=== PATIENT | female | born 1990 | race Caucasian/White ===

== ENCOUNTER 2017-08-18 10:30 | Emergency (ER) | payer BC ==
--- NOTE | 2017-08-18 11:12 | EDM.PDOC ---
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 Status post multiple home tests who comes in with vaginal bleeding. States that she was doing well until today about 30 minutes ago she started to have heavy bleeding similar to her menstrual period. She did pass some blood clots. No abdominal pain. No abdominal cramping. No additional complaint. No recent illness. No recent trauma. She has not yet seen OB, she has an appointment with Dr. Paredes scheduled for September. This was a desired . Pelvic Pain Score (Numeric/FACES): 4 - Related Data Allergies Allergy/AdvReac Type Severity Reaction Status Date / Time No Known Allergies Allergy Verified 08/18/17 10:42 Home Meds: Home Meds . [No Known Home Meds] 08/18/17 [History] Past Medical History - Past Health History Medical/Surgical History: Denies Medical/Surgical History HEENT History: Reports: None Cardiovascular History: Reports: None Respiratory History: Reports: None Gastrointestinal History: Reports: None Genitourinary History: Reports: None Musculoskeletal History: Reports: None Neurological History: Reports: None Psychiatric History: Reports: None Endocrine/Metabolic History: Reports: None Oncologic (Cancer) History: Reports: None Dermatologic History: Reports: None - Past Surgical History HEENT Surgical History: Reports: None Female Surgical History: Reports: None Social & Family History - Tobacco Use Smoking Status *Q: Never Smoker - Recreational Drug Use Recreational Drug Use: No ED ROS GENERAL - Review of Systems Review Of Systems: See Below Constitutional: Reports: No Symptoms HEENT: Reports: No Symptoms Respiratory: Reports: No Symptoms Cardiovascular: Reports: No Symptoms GI/Abdominal: Denies: Abdominal Pain : Denies: Dysuria Musculoskeletal: Reports: No Symptoms Neurological: Reports: No Symptoms ED EXAM - Physical Exam Exam: See Below Exam Limited By: No Limitations General Appearance: Alert, WD/WN, No Apparent Distress Eye Exam: Bilateral Eye: Normal Inspection Ears: Normal External Exam Nose: Normal Inspection Throat/Mouth: Normal Inspection, Normal Voice, No Airway Compromise Head: Atraumatic, Normocephalic Neck: Normal Inspection, Supple, Non-Tender, Full Range of Motion Respiratory/Chest: No Respiratory Distress, Lungs Clear, Normal Breath Sounds, Chest Non-Tender Cardiovascular: Normal Peripheral Pulses, Regular Rate, Rhythm GI/Abdominal Exam: Soft, Non-Tender, No Distention. No: Rebound (Female) Exam: Normal External Exam, Vaginal Bleeding (mild, no clots. cervix closed.). No: Cervical Dilatation, Cervical Discharge, Products of Conception Back Exam: Normal Inspection Extremities: Normal Inspection Neurological: Alert, Oriented, Normal Cognition, No Motor/Sensory Deficits Psychiatric: Normal Affect, Normal Mood Skin Exam: Warm, Dry, Normal Color, No Rash Course - Vital Signs Last Recorded V/S: Last Vital Signs Temp 36.9 C 08/18/17 10:39 Pulse 108 H 08/18/17 10:39 Resp 18 08/18/17 10:39 BP 158/107 H 08/18/17 10:39 Pulse Ox 98 08/18/17 10:39 - Orders/Labs/Meds Orders: Active Orders 24 hr Category Date Time Status Pelvic Exam, Set Up [RC] ASDIRECTED Care 08/18/17 11:09 Active Transvaginal Non OB [US] Stat Exams 08/18/17 12:00 Stop Req Labs: Laboratory Tests 08/18/17 Range/Units 11:00 HCG, Quant 19371.0 mIU/mL - Re-Assessments/Exams Free Text/Narrative Re-Assessment/Exam: 08/18/17 11:37 EGA is 6wks 0 days by dates. No abd pain. Bleeding on my exam is mild, though patient states it was initially heavier. Discussed diagnosis of threatened at length. Given early EGA, discussed that ultrasound is unlikely to price changer at this time. She will Follow up with her OB this week in 2- 3 days for repeat HCG and possible ultrasound. Discussed strict return precautions for worsening bleeding or abdominal pain. Patient understood. 08/18/17 12:01 HCG 34,000, discussed with patient. Departure - Departure Time of Disposition: 11:42 Disposition: Home, Self-Care 01 Clinical Impression: Threatened - Discharge Information Referrals: PCP,None [Ordering Only Provider] - Forms: ED Department Discharge Additional Instructions: 1. Follow up with Dr. Paredes on Saturday or Saturday for further care. Your HCG ( hormone) level today was 34,100. 2. Return to the Emergency Department if you have very heavy bleeding ( bleeding through more than a pad per hour and passing large clots), if you have abdominal pain, or if you feel dizzy/like you may pass out. - My Orders Last 24 Hours: My Active Orders 08/18/17 11:09 Pelvic Exam, Set Up [RC] ASDIRECTED 08/18/17 12:00 Transvaginal Non OB [US] Stat - Assessment/Plan Last 24 Hours: My Active Orders 08/18/17 11:09 Pelvic Exam, Set Up [RC] ASDIRECTED 08/18/17 12:00 Transvaginal Non OB [US] Stat
== END 2017-08-18 12:09 | disposition home or self-care (01) ==
LOC: JD.ED 10:30
DX: O20.0 Threatened abortion (principal); Z3A.01 Less than 8 weeks gestation of pregnancy
CPT/HCPCS: 36415; 84702; 99282; 99284

== ENCOUNTER 2018-03-17 20:51 | Inpatient (IN) | payer BC ==
[2018-03-17] MEDS ORDERED: Metoprolol Tartrate 100 MG Tab PO SCH (23:15)
[2018-03-18] MEDS ORDERED: Labetalol 100 MG Tab PO ONE (06:11)
[2018-03-18] MEDS ORDERED: ceFAZolin 2 GM in Premix Bag 1 BAG IV ONE (07:27)
[2018-03-18] MEDS ORDERED: Citric Acid/Sodium Citrate Solution 30 ML Cup PO ONE (07:27)
[2018-03-18] MEDS ORDERED: Sodium Chloride 0.9% 10 ML Syringe FLUSH PRN (07:27)
[2018-03-18] MEDS ORDERED: Metoclopramide 10 MG/2 ML SDV IVPUSH ONE (07:27)
[2018-03-18] MEDS ORDERED: Lactated Ringers 1,000 ML IV SCH (07:30)
[2018-03-18] MEDS ORDERED: Bupivacaine 0.5% 30 ML SDV ONE (07:39)
--- NOTE | 2018-03-18 07:40 | PCM.LDHP ---
L&D History of Present Illness - General Date of Service: 03/18/18 Admit Problem/Dx: Patient Status Order with Admit Dx/Problem 03/17/18 21:55 Patient Status [ADT] Routine 03/18/18 07:27 Patient Status [ADT] Routine Admission Diagnosis/Problem Admission Diagnosis/Problem 03/18/18 07:32 36-3/7 week IUP, progressive gestational hypertension Source of Information: Patient History Limitations: Reports: No Limitations - History of Present Illness Introduction:: Marychuy is a 28-year-old 2 para 1001 white female who is presently at 36-3/ 7 weeks gestational age with an JER of 04/12/2018. She has had gestational hypertension for several weeks and has been treated with labetalol. Her blood pressures were noted to be increased last night on home evaluation and patient was seen in labor and delivery. Her blood pressures have been somewhat variable during the course of this evaluation but most recent ones are in the 140s to 150s over 100-115 range. This despite 300 mg of labetalol orally this morning. She has had a headache over the last few days, has had puffiness in her legs with 1+ pitting edema noted. She has reported good activity. Her nonstress test was reactive and heart tones of been normal. She also reports some general feeling of give tightening and generalized edema feelings. 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 Her JER is determined by certain laststarting 07/06/2017 and supported by multiple ultrasounds. She is actually ahead of schedule as far as size is concerned. Previous done for failure to progress with a 9 lbs. 0 oz. male born 06/26/2012 in [place]. The child's name is Ford. She is planning to have a repeat section next week because of the gestational hypertension but we will be advanced because of progressive nature of her blood pressures. Patient declined genetic evaluation during . Her group B strep screen is negative. She has a risk factor of gestational hypertension and macrosomic baby. She is also obese. She plans to breast-feed. She Was given on 02/27/2018. Patient had menarche at age 9. Cycles every 28-30 days and regular. Positive hCG was on 08/12/2017. LMP 07/06/2017. Her course was unremarkable until third trimester at which time she developed gestational hypertension. Her first visit occurred on 2017 at 11-5/7 weeks. Her weight gain has been from 250.2 pounds to 270.6 pounds during the course of her care. Her blood pressures were relatively normal until approximately 32 weeks. She was started on labetalol and has been slowly increased to 3 times a day doses of 200 102 100 mg. He is developing more symptomatology in the last few days. Laboratory testing and shows her blood to be a positive with negative and by screen. Her first labs showed hemoglobin 11.6 g/dL which time she was started on iron therapy. Platelets 461,000. Her urine culture was unremarkable for pathogens. Her hepatitis B surface antigen and HIV assays were both negative. Chlamydia and gonorrhea assays were both negative. Diabetic screening test was within normal limits at 129. Her second trimester hemoglobin was 10.7 g/dL which time she was increased to twice a day iron therapy. Her platelet count at that time was 330,000. Past medical history: Infertility new prep past surgical history: New para 1. C- section 2011 for failure to progress secondary to CPD 2. Bladder surgery at age 7 for recurrent urinary tract infections. Family history positive for mother alive with breast cancer age 763 father has had a stroke at age 62. 3 brothers alive and well. Maternal grandmother secondary to breast cancer. Maternal grandfather is secondary to alcohol abuse complications. Paternal grandmother secondary to natural causes. Paternal grandfather secondary to TB. No bleeding, clotting, or anesthesia problems noted in the family. Social history: Patient is , lives in [place]. She is a [id number] mom. is Kyle. She does not use any significant loss of alcohol, drugs or tobacco. Review of systems: In general patient feels puffier and has had some headaches. She's had blurry vision which is not felt to be due to to her hypertension. Skin: Swelling and puffiness noted Cardiovascular: No chest pain or exercise intolerance Respiratory: No infectious symptoms or shortness of breath Breasts: Not evaluated this time found to be normal on previous evaluation. GI: Negative : Fundal height change secondary to Musculofascial total: Negative Neurological: Negative Physical exam: In general patient is a well-developed, obese white female in no acute distress. Alert and oriented 3. Skin is warm dry without lesions. Patient has 1+ pitting edema in bilateral lower extremities HEENT, neck and back within normal limits Lungs are clear with good breath sounds in all lung ricks. Cardiovascular exam shows regular rate and rhythm without murmurs. Breast exam is deferred. Abdomen is protuberant with last fundal height at 45 cm. Cervical exam has not been done for some time is not repeated at this time because patient's plan on repeat . Extremities show edema bilateral lower extremities. Neurological exam is within normal limits with exception reported headache over the last few days. Deep tendon reflexes are +1 bilaterally lower and upper extremities. Laboratory testing is relatively unremarkable. Liver function studies and kidney function studies are within normal limits. Uric acid is 4.3. Findings are more consistent with gestational hypertension then with preeclampsia. - Related Data Allergies/Adverse Reactions: Allergies Allergy/AdvReac Type Severity Reaction Status Date / Time No Known Allergies Allergy Verified 03/02/18 13:26 Home Medications: Home Meds Iron,Carbonyl/Vit C/Vit B12/Fa [Fe C Plus] 1 each PO DAILY 03/04/18 [History] Labetalol [Normodyne] 100 mg PO TID 03/04/18 [History] PNV No.115/Iron Fumarate/FA [ 19 Chewable Tablet] 2 each PO DAILY [History] Past Medical History - Past Health History Medical/Surgical History: Denies Medical/Surgical History HEENT History: Reports: None Cardiovascular History: Reports: None Respiratory History: Reports: None Gastrointestinal History: Reports: None Genitourinary History: Reports: None Musculoskeletal History: Reports: None Neurological History: Reports: None Psychiatric History: Reports: None Endocrine/Metabolic History: Reports: None Oncologic (Cancer) History: Reports: None Dermatologic History: Reports: None - Past Surgical History HEENT Surgical History: Reports: None Female Surgical History: Reports: None H&P Review of Systems - Review of Systems: Review Of Systems: See Below L&D Exam - Exam Exam: See Below - Vital Signs Vital Signs: Last Vital Signs Temp 36.5 C 03/17/18 21:12 Pulse 80 03/18/18 06:29 Resp 16 03/17/18 21:12 BP 154/98 H 03/18/18 06:29 Pulse Ox 99 03/17/18 21:12 - Patient Data Lab Results Last 24 hrs: Laboratory Results - last 24 hr 03/17/18 03/17/18 03/17/18 Range/Units 21:10 22:10 22:10 WBC 9.01 (3.98-10.04) K/mm3 RBC 4.08 (3.98-5.22) M/mm3 Hgb 10.8 L (11.2-15.7) gm/L Hct 32.7 L (34.1-44.9) % MCV 80.1 (79.4-94.8) fl MCH 26.5 (25.6-32.2) pg MCHC 33.0 (32.2-35.5) g/dl RDW Std Deviation 44.5 (36.4-46.3) fL Plt Count 314 (182-369) K/mm3 MPV 8.5 L (9.4-12.3) fl Neut % (Auto) 70.8 (34.0-71.1) % Lymph % (Auto) 19.2 L (19.3-51.7) % [place] % (Auto) 7.3 (4.7-12.5) % Eos % (Auto) 1.8 (0.7-5.8) Baso % (Auto) 0.2 (0.1-1.2) % Neut # (Auto) 6.38 H (1.56-6.13) K/mm3 Lymph # (Auto) 1.73 (1.18-3.74) K/mm3 [place] # (Auto) 0.66 H (0.24-0.36) K/mm3 Eos # (Auto) 0.16 (0.04-0.36) K/mm3 Baso # (Auto) 0.02 (0.01-0.08) K/mm3 Fibrinogen 552 H (187-446) mg/dL Fibrin Degrad Products < 5 ug/ml (<5) ug/mL BUN (7-18) mg/dL Creatinine (0.55-1.02) mg/dL Est Cr Clr Drug Dosing Estimated GFR (MDRD) (>60) mL/min Uric Acid (2.6-6.0) mg/dL AST (15-37) U/L ALT (14-59) U/L Lactate Dehydrogenase (81-234) U/L Urine Color Yellow (Yellow) Urine Appearance Slt cloudy H (Clear) Urine pH 7.5 (5.0-8.0) Ur Specific [place] 1.020 (1.005-1.030) Urine Protein 1+ H (Negative) Urine Glucose (UA) Negative (Negative) Urine Ketones Negative (Negative) Urine Occult Blood Trace-intact H (Negative) Urine Nitrite Negative (Negative) Urine Bilirubin Negative (Negative) Urine Urobilinogen 0.2 (0.2-1.0) Ur Leukocyte Esterase Trace H (Negative) 03/17/18 Range/Units 22:10 WBC (3.98-10.04) K/mm3 RBC (3.98-5.22) M/mm3 Hgb (11.2-15.7) gm/L Hct (34.1-44.9) % MCV (79.4-94.8) fl MCH (25.6-32.2) pg MCHC (32.2-35.5) g/dl RDW Std Deviation (36.4-46.3) fL Plt Count (182-369) K/mm3 MPV (9.4-12.3) fl Neut % (Auto) (34.0-71.1) % Lymph % (Auto) (19.3-51.7) % [place] % (Auto) (4.7-12.5) % Eos % (Auto) (0.7-5.8) Baso % (Auto) (0.1-1.2) % Neut # (Auto) (1.56-6.13) K/mm3 Lymph # (Auto) (1.18-3.74) K/mm3 [place] # (Auto) (0.24-0.36) K/mm3 Eos # (Auto) (0.04-0.36) K/mm3 Baso # (Auto) (0.01-0.08) K/mm3 Fibrinogen (187-446) mg/dL Fibrin Degrad Products (<5) ug/mL BUN 9 (7-18) mg/dL Creatinine 0.5 L (0.55-1.02) mg/dL Est Cr Clr Drug Dosing TNP Estimated GFR (MDRD) > 60 (>60) mL/min Uric Acid 4.3 (2.6-6.0) mg/dL AST 22 (15-37) U/L ALT 20 (14-59) U/L Lactate Dehydrogenase 127 (81-234) U/L Urine Color (Yellow) Urine Appearance (Clear) Urine pH (5.0-8.0) Ur Specific [place] (1.005-1.030) Urine Protein (Negative) Urine Glucose (UA) (Negative) Urine Ketones (Negative) Urine Occult Blood (Negative) Urine Nitrite (Negative) Urine Bilirubin (Negative) Urine Urobilinogen (0.2-1.0) Ur Leukocyte Esterase (Negative) Result Diagrams: 03/17/18 22:10 03/17/18 22:10 Problem List Initiated/Reviewed/Updated: Yes Orders Last 24hrs: Active Orders 24 hr Category Date Time Status Patient Status [ADT] Routine ADT 03/17/18 21:55 Active Patient Status [ADT] Routine ADT 03/18/18 07:27 Ordered Communication Order [RC] ROUTINE Care 03/18/18 07:27 Ordered Heart Tones [RC] PER UNIT ROUTINE Care 03/18/18 07:27 Ordered Non Stress Test [RC] PER UNIT ROUTINE Care 03/17/18 21:55 Active Peripheral IV Care [RC] . DIRECTED Care 03/18/18 07:28 Ordered Procedure Site Prep Instruct [RC] ASDIRECTED Care 03/18/18 07:27 Ordered Vaginal Exam [RC] PRN Care 03/17/18 21:55 Active Verify Patient Consent Obtain [RC] PER UNIT ROUTINE Care 03/18/18 07:27 Ordered Vital Signs [RC] PER UNIT ROUTINE Care 03/17/18 21:55 Active Vital Signs [RC] PFP Care 03/18/18 07:27 Ordered TYPE AND SCREEN [BBK] Routine Lab 03/18/18 07:27 Ordered Citric Acid/Sodium Citrate [Bicitra Solution] Med 03/18/18 07:27 Once 30 ml PO ONETIME ONE Lactated Ringers @ 125 MLS/HR(1000ml) Med 03/18/18 07:30 Ordered Lactated Ringers [Ringers, Lactated] 1,000 ml IV ASDIRECTED Metoclopramide [Reglan] Med 03/18/18 07:27 Once 10 mg IVPUSH ONETIME ONE Metoprolol Tartrate [Lopressor] Med 03/17/18 23:15 Active 200 mg PO ONETIME Sodium Chloride 0.9% [Saline Flush] Med 03/18/18 07:27 Ordered 10 ml FLUSH ASDIRECTED PRN ceFAZolin [Ancef] 2 gm Med 03/18/18 07:27 Ordered Premix Bag 1 bag IV ONETIME PIH Panel [OM.PC] Stat Oth 03/17/18 21:55 Ordered Peripheral IV Insertion Adult [OM.PC] Routine Oth 03/18/18 07:27 Ordered Schedule Procedure [COMM] Per Unit Routine Oth 03/18/18 07:27 Ordered Resuscitation Status Routine Resus Stat 03/17/18 21:55 Ordered Medication Orders Metoprolol Tartrate (Lopressor) 200 mg PO ONETIME MICKI Last Admin: 03/17/18 23:24 Dose: 200 mg Assessment/Plan Comment:: 1. 36-3/7 week intrauterine with progressive gestational hypertension which is now symptomatic 2. History of previous with desire for repeat 3. Risk factors for the include history previous , history of macrosomia, gestational hypertension 4. Patient plans to breast-feed 5. Group B strep screen is negative 6. Rubella titer shows immunity Plan: 1. Repeat lower segment transverse section through Morales skin incision under spinal block. Procedure, risks, benefits, alternatives of care including maintaining an increasing labetalol an attempt to prolong discussed with patient. She appears to understand and wishes to proceed with procedure. 2. DVT prophylaxis with SCDs 3. Infection prophylaxis Ancef 2 g IV preop 4. Type and screen and routine preoperative prep. 5. Dr. Styles to attend delivery.
--- NOTE | 2018-03-18 07:58 | PCM.PREANE ---
Preanesthetic Assessment - Procedure Proposed Procedure: Ceasaren Section - Anesthesia/Transfusion/Family Hx Anesthesia History: No Prior Anesthesia Family History of Anesthesia Reaction: No Transfusion History: No Prior Transfusion(s) - Review of Systems General: No Symptoms Pulmonary: No Symptoms Cardiovascular: Other (murmur - first had "fast hear beat" ) Gastrointestinal: No Symptoms Neurological: No Symptoms Other: Reports: None - Physical Assessment NPO Status Date: 03/17/18 NPO Status Time: 18:00 Pulse: 80 O2 Sat by Pulse Oximetry: 99 Respiratory Rate: 16 Blood Pressure: 154/98 Vital Signs: Last Vital Signs Temp 36.5 C 03/17/18 21:12 Pulse 80 03/18/18 06:29 Resp 16 03/17/18 21:12 BP 154/98 H 03/18/18 06:29 Pulse Ox 99 03/17/18 21:12 Height: 1.63 m ASA Class: 2 Mental Status: Alert & Oriented x3 Airway Class: Mallampati = 1 Dentition: Reports: Normal Dentition Thyro-Mental Finger Breadths: 3 Mouth Opening Finger Breadths: 4 ROM/Head Extension: Full Lungs: Clear to Auscultation, Normal Respiratory Effort Cardiovascular: Regular Rate, Regular Rhythm - Lab Values: Laboratory Last Values WBC 9.01 K/mm3 (3.98-10.04) 03/17/18 22:10 RBC 4.08 M/mm3 (3.98-5.22) 03/17/18 22:10 Hgb 10.8 gm/L (11.2-15.7) L 03/17/18 22:10 Hct 32.7 % (34.1-44.9) L 03/17/18 22:10 MCV 80.1 fl (79.4-94.8) 03/17/18 22:10 MCH 26.5 pg (25.6-32.2) 03/17/18 22:10 MCHC 33.0 g/dl (32.2-35.5) 03/17/18 22:10 RDW Std Deviation 44.5 fL (36.4-46.3) 03/17/18 22:10 Plt Count 314 K/mm3 (182-369) 03/17/18 22:10 MPV 8.5 fl (9.4-12.3) L 03/17/18 22:10 Neut % (Auto) 70.8 % (34.0-71.1) 03/17/18 22:10 Lymph % (Auto) 19.2 % (19.3-51.7) L 03/17/18 22:10 [place] % (Auto) 7.3 % (4.7-12.5) 03/17/18 22:10 Eos % (Auto) 1.8 (0.7-5.8) 03/17/18 22:10 Baso % (Auto) 0.2 % (0.1-1.2) 03/17/18 22:10 Neut # (Auto) 6.38 K/mm3 (1.56-6.13) H 03/17/18 22:10 Lymph # (Auto) 1.73 K/mm3 (1.18-3.74) 03/17/18 22:10 [place] # (Auto) 0.66 K/mm3 (0.24-0.36) H 03/17/18 22:10 Eos # (Auto) 0.16 K/mm3 (0.04-0.36) 03/17/18 22:10 Baso # (Auto) 0.02 K/mm3 (0.01-0.08) 03/17/18 22:10 Fibrinogen 552 mg/dL (187-446) H 03/17/18 22:10 Fibrin Degrad Products < 5 ug/ml ug/mL (<5) 03/17/18 22:10 BUN 9 mg/dL (7-18) 03/17/18 22:10 Creatinine 0.5 mg/dL (0.55-1.02) L 03/17/18 22:10 Est Cr Clr Drug Dosing TNP 03/17/18 22:10 Estimated GFR (MDRD) > 60 mL/min (>60) 03/17/18 22:10 Uric Acid 4.3 mg/dL (2.6-6.0) 03/17/18 22:10 AST 22 U/L (15-37) 03/17/18 22:10 ALT 20 U/L (14-59) 03/17/18 22:10 Lactate Dehydrogenase 127 U/L (81-234) 03/17/18 22:10 Urine Color Yellow (Yellow) 03/17/18 21:10 Urine Appearance Slt cloudy (Clear) H 03/17/18 21:10 Urine pH 7.5 (5.0-8.0) 03/17/18 21:10 Ur Specific [place] 1.020 (1.005-1.030) 03/17/18 21:10 Urine Protein 1+ (Negative) H 03/17/18 21:10 Urine Glucose (UA) Negative (Negative) 03/17/18 21:10 Urine Ketones Negative (Negative) 03/17/18 21:10 Urine Occult Blood Trace-intact (Negative) H 03/17/18 21:10 Urine Nitrite Negative (Negative) 03/17/18 21:10 Urine Bilirubin Negative (Negative) 03/17/18 21:10 Urine Urobilinogen 0.2 (0.2-1.0) 03/17/18 21:10 Ur Leukocyte Esterase Trace (Negative) H 03/17/18 21:10 - Allergies Allergies/Adverse Reactions: Allergies Allergy/AdvReac Type Severity Reaction Status Date / Time No Known Allergies Allergy Verified 03/02/18 13:26 - Blood Blood Available: No - Anesthesia Plan Pre-Op Medication Ordered: None - Acknowledgements Anesthesia Type Planned: Spinal Pt an Appropriate Candidate for the Planned Anesthesia: Yes Alternatives and Risks of Anesthesia Discussed w Pt/Guardian: Yes Pt/Guardian Understands and Agrees with Anesthesia Plan: Yes PreAnesthesia Questionnaire - Past Health History Medical/Surgical History: Denies Medical/Surgical History HEENT History: Reports: None Cardiovascular History: Reports: None Respiratory History: Reports: None Gastrointestinal History: Reports: None Genitourinary History: Reports: None Musculoskeletal History: Reports: None Neurological History: Reports: None Psychiatric History: Reports: None Endocrine/Metabolic History: Reports: None Oncologic (Cancer) History: Reports: None Dermatologic History: Reports: None - Past Surgical History HEENT Surgical History: Reports: None Female Surgical History: Reports: None, Section - HOME MEDS Home Medications: Home Meds Iron,Carbonyl/Vit C/Vit B12/Fa [Fe C Plus] 1 each PO DAILY 03/04/18 [History] Labetalol [Normodyne] 100 mg PO TID 03/04/18 [History] PNV No.115/Iron Fumarate/FA [ 19 Chewable Tablet] 2 each PO DAILY [History] - CURRENT (IN HOUSE) MEDS Current Meds: Current Medications Cefazolin Sodium/Dextrose 2 gm (/ Premix) 50 mls @ 100 mls/hr IV ONETIME ONE Stop: 03/18/18 07:56 Lactated Ringer's (Ringers, Lactated) 1,000 mls @ 125 mls/hr IV ASDIRECTED MICKI Metoprolol Tartrate (Lopressor) 200 mg PO ONETIME MICKI Last Admin: 03/17/18 23:24 Dose: 200 mg Sodium Chloride (Saline Flush) 10 ml FLUSH ASDIRECTED PRN PRN Reason: Keep Vein Open Discontinued Medications Bupivacaine HCl (Marcaine 0.5%) Confirm Administered Dose 30 ml .ROUTE .STK-MED ONE Stop: 03/18/18 07:40 Citric Acid/Sodium Citrate (Bicitra Solution) 30 ml PO ONETIME ONE Stop: 03/18/18 07:28 Labetalol HCl (Normodyne) 300 mg PO ONETIME ONE Stop: 03/18/18 06:12 Last Admin: 03/18/18 06:29 Dose: 300 mg Metoclopramide HCl (Reglan) 10 mg IVPUSH ONETIME ONE Stop: 03/18/18 07:28
[2018-03-18] MEDS ORDERED: Oxytocin 10 Units/1 ML SDV ONE ×2 (08:26→09:25)
[2018-03-18] MEDS ORDERED: Morphine PF 10 MG/10 ML SDV ONE (08:27)
[2018-03-18] MEDS ORDERED: Ondansetron 4 MG/2 ML SDV IVPUSH PRN ×2 (08:44→09:57)
[2018-03-18] MEDS ORDERED: Acetaminophen/oxyCODONE 325-5 MG Tab PO PRN ×2 (08:44→11:38)
--- NOTE | 2018-03-18 08:50 | PCM.OPNOTE ---
- General Post-Op/Procedure Note Date of Surgery/Procedure: 03/18/18 Operative Procedure(s): Excision of right vaginal Hitesh's duct cyst Findings: Right Hitseh's duct cyst Pre Op Diagnosis: Right vaginal Hitesh's duct cyst Post-Op Diagnosis: Same Anesthesia Technique: General LMA Other Anesthesia Type: Quarter percent lidocaine with epinephrine5 mL total Primary Surgeon: Andrea Paredes Secondary Surgeon: Ford Sethi Anesthesia Provider: Bry Pascal Focuser: Cedrick Vela Reason Focuser Was Necessary: Retraction, assistance, patient safety, quality of care Role of Focuser: Retraction, assistance Fluid Replacement, Intraop: 700 EBL in mLs: 10 Complications: None Condition: Good Free Text/Narrative:: Surgery duration: 14 minutes Procedure: After consent is signed and preoperative discussions health patient patient is taken to the operating room. She is given general LMA anesthesia. She had received 2 g Ancef preoperatively for infection prophylaxis and had sequential compression stockings in place for DVT prophylaxis. Patient placed in dorsal lithotomy position and prepped and draped in usual fashion. The right vaginal Hitesh's duct cyst was identified and grasped at its distal and with 2 Allis clamps. It is approximately 2-3 cm in diameter and approximately 4 cm in length. It felt empty and no structures were palpated inside the wall of the cyst The them overlying the cyst was infiltrated lidocaine quarter percent with epinephrine approximate 5-10 mL total the end of systems then opened revealing a dark yellow serous fluid. Aqua was then excised down to the base of the sac. The edges of the sac and the epithelium outside the sister then marsupialized with 3-0 Monocryl suture in 3 short running lengths. As her blood loss was 10 mL. Hemostasis was confirmed this time. The procedure was discontinued. Patient was returned to supine position and taken from anesthesia. She tolerated procedure well left the operating room in good condition.
[2018-03-18] MEDS ORDERED: ceFAZolin 1 GM Vial ONE (09:06)
[2018-03-18] MEDS ORDERED: Lactated Ringers 1,000 ML ONE ×3 (09:11→09:26)
[2018-03-18] MEDS ORDERED: ePHEDrine/Normal Saline 25 MG/5 ML Syringe ONE (09:30)
[2018-03-18] MEDS ORDERED: Ketorolac 30 MG/ML SDV ONE (09:43)
[2018-03-18] MEDS ORDERED: diphenhydrAMINE 50 MG/ML SDV IVPUSH PRN ×2 (09:57→11:38)
--- NOTE | 2018-03-18 10:02 | PCM.POSTAN ---
POST ANESTHESIA ASSESSMENT - MENTAL STATUS Mental Status: Alert - VITAL SIGNS Pulse Rate: 81 SaO2: 95 Resp Rate: 16 Blood Pressure: 151/80 Temperature: 37.1 C - RESPIRATORY Respiratory Status: Respiratory Rate WNL, Airway Patent, O2 Saturation Stable - CARDIOVASCULAR CV Status: Pulse Rate WNL, Blood Pressure Stable - GASTROINTESTINAL GI Status: No Symptoms
--- NOTE | 2018-03-18 10:27 | PCM.OPNOTE ---
- General Post-Op/Procedure Note Date of Surgery/Procedure: 03/18/18 Operative Procedure(s): Repeat lower uterine segment transverse uterine section through Pfannenstiel skin incision under spinal block. Findings: Baby is in vertex presentation, amniotic fluid was clear. Uterus tubes ovaries are consistent with a term . Lower uterine segment was 2-3 mm thick. Pre Op Diagnosis: 1. 36-3/7 week intrauterine . 2. Progressive gestational hypertension. 3. History of previous section with desire for repeat section Post-Op Diagnosis: Same with delivery of viable, 9 lbs. 3 oz. male infant with Apgars of 8 and 9 at 0912 hrs. Anesthesia Technique: Spinal Other Anesthesia Type: Marcaine 0.5% local20 mL total Primary Surgeon: Andrea Paredes Secondary Surgeon: Ford Sethi Hide Trimmer: Nikkie Zuñiga Reason Hide Trimmer Was Necessary: Retraction, assistance, patient safety, quality care Role of Hide Trimmer: Retraction, assistance Fluid Replacement, Intraop: 1,900 Output, Urine Amount: 150 EBL in mLs: 500 Drain/Tube Comments:: Indwelling bladder catheter Condition: Good Free Text/Narrative:: Intake & Output 03/17/18 03/18/18 03/18/18 22:59 06:59 14:59 Intake Total 700 Output Total 150 Balance 550 Surgery duration: 33 minutes Procedure: Patient was transferred to the room and placed in a sitting position. Spinal anesthesia was administered. After confirmation of adequate anesthesia patient was placed in a supine position with a wedge under her right side to facilitate left lateral positioning. The patient was prepped and draped in usual fashion after Molina catheter was already placed . The anesthetic was checked and found to be adequate. 20 mL of Marcaine 0.5% was injected locally in the Pfannenstiel incision site. The Pfannenstiel skin incision was then made carried down to skin subcutaneous and fascial layers. The fascia was then undermined superiorly and inferiorly to allow for adequate operating room the recti muscles midline and preperitoneal fat was bluntly dissected. Peritoneal cavity was entered longitudinally. The vesicouterine peritoneum was then incised transversely and bladder flap was developed. Myometrium was incised transversely to the level of the amniotic sac. This incision was extended bilaterally in a blunt fashion. The amniotic sac was then ruptured resulting clear amniotic fluid. A hand is placed in the low uterine segment and the baby's head was brought forth through the incision. The baby was completely delivered using fundal pressure in a routine fashion. The nose and mouth were bulb suctioned. Baby's cord was clamped x2 cut and baby was handed off to attending outreach team member Dr Styles. Placenta was expressed after cord blood was obtained. Uterus was then exteriorized to allow for easier closure. The cervix was assessed and found to be dilated adequately to allow egress of blood. The uterus was closed in 2 layers. The first layer a running locked suture of 0 Monocryl, the second layer a running locked vertical mattress suture of 0 Monocryl. [id number] suture was placed at the left incision to control 1 bleeder. Hemostasis confirmed at this time. Sponge instrument needle counts are correct. The uterus was returned to the abdominal cavity and lateral gutters were cleared of blood. Once again sponge needle counts are correct. The anterior abdominal wall was closed with a #1 PDS suture from angle to angle. The subcutaneous area was found to be free of any bleeders. 3 interrupted sutures of 3-0 Monocryl were used to reapproximate the subcutaneous layer.Skin was closed with a running subcuticular stitch of 3-0 Monocryl in a vertical mattress suture fashion using a Subhash needle. Prineo mesh /glue was then applied to further approximate the incision. Should be nose small fibroid was noted in the right anterior uterus. Was approximate 2-1/2 cm in diameter. It should be noted that patient received 2 g of Ancef preoperatively for infection prophylaxis and had Pitocin infused after delivery of the placenta to facilitate uterine contraction. She also had sequential compression stockings in place for DVT prophylaxis. Patient was discharged from the operating room in satisfactory condition.
[2018-03-18] MEDS ORDERED: Docusate Sodium 100 MG Cap PO PRN (11:38)
[2018-03-18] MEDS ORDERED: Dextrose 5%-Lactated Ringers 1,000 ML IV SCH (11:38)
[2018-03-18] MEDS ORDERED: ePHEDrine 50 MG/ML SDV IVPUSH PRN (11:38)
[2018-03-18] MEDS ORDERED: Naloxone 0.4 MG/ML SDV IVPUSH PRN (11:38)
[2018-03-18] MEDS ORDERED: Lanolin 100% Cream 7 GM Tube TOP PRN (11:38)
[2018-03-18] MEDS: Labetalol 100 MG Tab PO SCH ×2 (11:52→19:15)
[2018-03-18] MEDS: Ibuprofen 800 MG Tab PO SCH (16:29)
[2018-03-18] MEDS: Simethicone 80 MG Tab.Chew PO SCH (16:29)
[2018-03-19] MEDS: Ondansetron 4 MG/2 ML SDV IV SCH ×2 (00:43→20:07)
[2018-03-19] MEDS: Simethicone 80 MG Tab.Chew PO SCH ×6 (00:44→20:09)
[2018-03-19] MEDS: Labetalol 100 MG Tab PO SCH ×4 (00:44→20:09)
[2018-03-19] MEDS: Ibuprofen 800 MG Tab PO SCH ×4 (00:50→23:32)
--- NOTE | 2018-03-19 06:57 | PCM.SN ---
- Free Text/Narrative Note: note: Patient is doing well in the period. She is day one status post C- section done as a repeat . Repeat was done time because of progressive gestational hypertension. Minimal lochia, voiding well, ambulated without problems. Nursing without concerns. Patient is afebrile, vital signs are stable Abdomen is flat, soft, uterus is below the umbilicus and is firm and nontender. Incision appears to be healing well. Legs are nontender. Hemoglobin is 8.7. Patient doing well with this level. Will monitor Assessment: recovery going well. Monitor clinical course and add iron to her post discharge regimen. Plan: Routine care. Patient be discharged home within the next 24- 48 hours. increase activity today.
[2018-03-19] MEDS: Prenatal Multivitamin with Calcium/Folic Acid/Iron Tab PO SCH (08:49)
[2018-03-20] MEDS ORDERED: Labetalol 100 MG Tab PO SCH (06:00)
[2018-03-20] MEDS: Ibuprofen 800 MG Tab PO SCH (08:33)
[2018-03-20] MEDS: Simethicone 80 MG Tab.Chew PO SCH ×3 (10:04→14:52)
[2018-03-20] MEDS: Prenatal Multivitamin with Calcium/Folic Acid/Iron Tab PO SCH (10:04)
[2018-03-20] MEDS ORDERED: Acetaminophen 325 MG Tab PO ONE (11:58)
--- NOTE | 2018-03-20 13:43 | PCM.DCSUM1 ---
Discharge Summary - Hospital Course Free Text/Narrative:: Connie is a 28 y/o 2 para 20o underwent a repeat lower segment transverse section on haven't 12/03/2018 for elevated blood pressures in consistent with a progressive gestational hypertension. Preeclampsia ent's reflexes were within normal limits. She had only minimal to 1 + edema. Findings consistent with gestational hypertension. Please see operative report for details. Post operatively patient's blood pressures remained somewhat elevated and for this she was treated with labetalol. She was increased to 300 mg by mouth 3 times a day. With this her blood pressures remained fairly constant in normal range. She is bottle feeding. She is made good bowel bladder and avatar covered. She is desiring to be discharged home. Diagnosis: Stroke: No - Discharge Data Discharge Date: 03/20/18 Discharge Disposition: Home, Self-Care 01 Condition: Good - Patient Summary/Data Operative Procedure(s) Performed: Repeat lower uterine segment transverse uterine section through Pfannenstiel skin incision under spinal block. - Patient Instructions Diet: Regular Diet as Tolerated Activity: As Tolerated (no lifting greater than 15 pounds or driving a car 1 week no intercourse or tampons until seen back) Driving: Do Not Drive Showering/Bathing: May Shower Showering/Bathing, Other: may take a bath in 1 week Wound/Incision Care: Keep Operative Site/Wound Site Clean and Dry Notify Provider of: Fever, Increased Pain, Swelling and Redness, Drainage, Nausea and/or Vomiting - Discharge Plan Home Medications: Home Meds Iron,Carbonyl/Vit C/Vit B12/Fa [Fe C Plus] 1 each PO DAILY 03/04/18 [History] PNV No.115/Iron Fumarate/FA [ 19 Chewable Tablet] 2 each PO DAILY [History] Acetaminophen/oxyCODONE [Percocet 325-5 MG] 2 tab PO Q4H PRN #30 tablet [Rx] Ibuprofen [Motrin] 800 mg PO Q8H tablet 03/20/18 [Rx] Labetalol [Normodyne] 300 mg PO TID tablet 03/20/18 [Rx] Patient Handouts: , Home Care Instructions for Mom, Tips for a Good Latch Referrals: Andrea Paredes MD [Primary Care Provider] - (return to clinic1 week-Dr. Paredes) - Discharge Summary/Plan Comment DC Time >30 min.: No Discharge Summary/Plan Comment: Discharge instructions: 1. Discharge home 2. Diet, activity and follow-up discussed with patient. 3. Precautions given concern increased pain, bleeding, temperature, signs/ symptoms of DVT/PE. 4. Medications per home medication was printed, discussed with and given to the patient. 5. Return to clinic-Dr. Paredes-[facility] in 1 weeks. Diagnosis: 1. 6 week -delivered 2. Progressive gestational hypertension Condition: Good - Patient Data Vitals - Most Recent: Last Vital Signs Temp 36.8 C 03/20/18 10:02 Pulse 91 03/20/18 10:02 Resp 18 03/20/18 10:02 BP 147/92 H 03/20/18 10:02 Pulse Ox 100 03/20/18 10:02 Weight - Most Recent: 125.645 kg I&O - Last 24 hours: Intake & Output 03/19/18 03/20/18 03/20/18 22:59 06:59 14:59 Intake Total 360 120 Balance 360 120 Lab Results - Last 24 hrs: Laboratory Results - last 24 hr 03/18/18 Range/Units 07:45 RPR Non-reactive (NONREACTIVE) Med Orders - Current: Current Medications Diphenhydramine HCl (Benadryl) 25 mg IVPUSH Q6H PRN PRN Reason: Itching or Nausea Docusate Sodium (Colace) 100 mg PO Q12H PRN PRN Reason: Constipation Emollient Ointment (Lansinoh Hpa) 0 gm TOP ASDIRECTED PRN PRN Reason: Sore Nipples Ephedrine Sulfate (Ephedrine Sulfate) 5 mg IVPUSH SEECOMMENT PRN PRN Reason: Other Ibuprofen (Motrin) 800 mg PO Q8H [facility] Last Admin: 03/20/18 08:33 Dose: 800 mg Labetalol HCl (Normodyne) 300 mg PO TID [facility] Last Admin: 03/20/18 06:11 Dose: 300 mg Naloxone HCl (Narcan) 0.1 mg IVPUSH SEECOMMENT PRN PRN Reason: Respiratory Depression Oxycodone/Acetaminophen (Percocet 325-5 Mg) 2 tab PO Q4H PRN PRN Reason: Pain (moderate 4-6) Prenat Multivit/Elevating Grader Operator/Iron/Folic Ac ( Plus Iron) 1 each PO DAILY [facility] Last Admin: 03/20/18 10:04 Dose: 1 each Simethicone (Simethicone) 160 mg PO QID [facility] Last Admin: 03/20/18 10:46 Dose: 160 mg Discontinued Medications Acetaminophen (Tylenol) 650 mg PO NOW ONE Stop: 03/20/18 11:59 Last Admin: 03/20/18 12:10 Dose: 650 mg Bupivacaine HCl (Marcaine 0.5%) Confirm Administered Dose 30 ml .ROUTE .STK-MED ONE Stop: 03/18/18 07:40 Last Admin: 03/18/18 09:08 Dose: 20 ml Cefazolin Sodium (Ancef) Confirm Administered Dose 2 gm .ROUTE .STK-MED ONE Stop: 03/18/18 09:07 Citric Acid/Sodium Citrate (Bicitra Solution) 30 ml PO ONETIME ONE Stop: 03/18/18 07:28 Last Admin: 03/18/18 08:30 Dose: 30 ml Diphenhydramine HCl (Benadryl) 12.5 mg IVPUSH Q6H PRN PRN Reason: pruritis Ephedrine Sulfate (Ephedrine In Ns) Confirm Administered Dose 25 mg .ROUTE .STK- MED ONE Stop: 03/18/18 09:31 Cefazolin Sodium/Dextrose 2 gm (/ Premix) 50 mls @ 100 mls/hr IV ONETIME ONE Stop: 03/18/18 07:56 Lactated Ringer's (Ringers, Lactated) 1,000 mls @ 125 mls/hr IV ASDIRECTED [facility] Lactated Ringer's (Ringers, Lactated) Confirm Administered Dose 1,000 mls @ as directed .ROUTE .STK-MED ONE Stop: 03/18/18 09:12 Lactated Ringer's (Ringers, Lactated) Confirm Administered Dose 1,000 mls @ as directed .ROUTE .STK-MED ONE Stop: 03/18/18 09:27 Lactated Ringer's (Ringers, Lactated) Confirm Administered Dose 1,000 mls @ as directed .ROUTE .STK-MED ONE Stop: 03/18/18 09:27 Dextrose/Lactated Ringer's (Dextrose 5%-Lactated Ringers) 1,000 mls @ 125 mls/ hr IV ASDIRECTED [facility] Stop: 03/18/18 19:37 Last Admin: 03/18/18 19:21 Dose: 125 mls/hr Ketorolac Tromethamine (Toradol) Confirm Administered Dose 30 mg .ROUTE .STK- MED ONE Stop: 03/18/18 09:44 Labetalol HCl (Normodyne) 300 mg PO ONETIME ONE Stop: 03/18/18 06:12 Last Admin: 03/18/18 06:29 Dose: 300 mg Labetalol HCl (Normodyne) 200 mg PO TID [facility] Last Admin: 03/19/18 20:09 Dose: 200 mg Metoclopramide HCl (Reglan) 10 mg IVPUSH ONETIME ONE Stop: 03/18/18 07:28 Last Admin: 03/18/18 08:31 Dose: 10 mg Metoprolol Tartrate (Lopressor) 200 mg PO ONETIME [facility] Last Admin: 03/17/18 23:24 Dose: 200 mg Morphine Sulfate (Duramorph Pf) Confirm Administered Dose 10 mg .ROUTE .STK-MED ONE Stop: 03/18/18 08:28 Ondansetron HCl (Zofran) 4 mg IVPUSH Q4H PRN PRN Reason: Nausea Ondansetron HCl (Zofran) 4 mg IVPUSH ONETIME PRN PRN Reason: Nausea/Vomiting Ondansetron HCl (Zofran) 4 mg IV Q4H [facility] Last Admin: 03/19/18 20:07 Dose: Not Given Oxycodone/Acetaminophen (Percocet 325-5 Mg) 2 tab PO Q4H PRN PRN Reason: Pain Oxytocin (Pitocin) Confirm Administered Dose 20 unit .ROUTE .STK-MED ONE Stop: 03/18/18 08:27 Oxytocin (Pitocin) Confirm Administered Dose 20 unit .ROUTE .STK-MED ONE Stop: 03/18/18 09:26 Sodium Chloride (Saline Flush) 10 ml FLUSH ASDIRECTED PRN PRN Reason: Keep Vein Open
== END 2018-03-20 14:25 | disposition home or self-care (01) | DRG 540 ==
LOC: JD.OB 20:51 → JD.OBCHECK 20:51 → JD.OB 03-18 07:27 → JD.OBCHECK 03-18 07:27 → OBSVTOIN 03-18 09:12 → JD.OB 03-18 09:13
PROVIDERS: ADMIT Obstetrics & Gynecology; ATTEND Obstetrics & Gynecology
PROC: 10D00Z1 Extraction of Products of Conception, Low, Open Approach (ICD-10-PCS; principal; 2018-03-18)
PROC: 6A550ZT Pheresis of Cord Blood Stem Cells, Single (ICD-10-PCS; principal; 2018-03-18)
DX: O34.211 Maternal care for low transverse scar from previous cesarean delivery (principal); O99.214 Obesity complicating childbirth; E66.9 Obesity, unspecified; N85.8 Other specified noninflammatory disorders of uterus; Z3A.36 36 weeks gestation of pregnancy; Z37.0 Single live birth; O13.4 Gestational [pregnancy-induced] hypertension without significant proteinuria, complicating childbirth
CPT/HCPCS: 01961; 36415; 59025; 81003; 82565; 83615; 84450; 84460; 84520; 84550; 85025; 85362; 85384; 86592; 86850; 86900; 86901; A9270-GY; J0690; J1885; J2270; J2590; J2765; J7042; J7050; J7120

== ENCOUNTER 2018-12-06 01:25 | Emergency (ER) | payer BC ==
--- NOTE | 2018-12-06 01:49 | EDM.PDOC ---
ED HPI GENERAL MEDICAL PROBLEM - General Chief Complaint: Cardiovascular Problem Stated Complaint: HIGH BP Time Seen by Provider: 12/06/18 01:44 Source of Information: Reports: Patient, Family History Limitations: Reports: No Limitations - History of Present Illness INITIAL COMMENTS - FREE TEXT/NARRATIVE: 20-year-old female presents to the ED for evaluation of elevated blood pressure. Patient is currently at a retreat out in [place]. The pressure was checked there and was found to be elevated. Patient reports she developed blood pressure or hypertension during and was continued on medication for a period of 2-3 months after the due to preeclampsia and blood pressure came down to normal and she was taken off her meds. She takes her blood pressure periodically and is been running around 140s on the systolic side and slightly over 90 on the diastolic side. Tonight when they took it out there was greater than 170 and greater than 110 on the bottom. Currently blood pressure is 180 01/21/18 in the ED. Her only symptom is some mild pressure in and temporalis scalp. No nausea vomiting, palpitations or chest pain. Onset: Unknown/Unsure Duration: Week(s): (Blood pressure apparently has been elevated mildly for the last several weeks. She was told at [facility] 2 weeks ago or 3 weeks ago when she was therefore sinus infection that her blood pressure was elevated.) Location: Reports: Other (Elevated blood pressure without any real symptoms.) Quality: Reports: Other Severity: Moderate (Levator blood pressure) Improves with: Reports: None Worsens with: Reports: None Context: Denies: Activity, Exercise, Lifting, Sick Contact, Trauma, Other Associated Symptoms: Reports: Other Treatments REGIONAL SAFETY MANAGER: Reports: Other (see below) (Mild pressure sensation temporal scalp.) - Related Data Allergies Allergy/AdvReac Type Severity Reaction Status Date / Time No Known Allergies Allergy Verified 03/02/18 13:26 Home Meds: Home Meds Iron,Carbonyl/Vit C/Vit B12/Fa [Fe C Plus] 1 each PO DAILY 03/04/18 [History] PNV No.115/Iron Fumarate/FA [ 19 Chewable Tablet] 2 each PO DAILY [History] Acetaminophen/oxyCODONE [Percocet 325-5 MG] 2 tab PO Q4H PRN #30 tablet [Rx] Ibuprofen [Motrin] 800 mg PO Q8H tablet 03/20/18 [Rx] Labetalol [Normodyne] 300 mg PO TID tablet 03/20/18 [Rx] Methyldopa 250 mg PO BID #60 tab 12/06/18 [Rx] Past Medical History - Past Health History Medical/Surgical History: Denies Medical/Surgical History HEENT History: Reports: None, Impaired Vision Other HEENT History: Wears glasses Cardiovascular History: Reports: None, Hypertension Respiratory History: Reports: None Gastrointestinal History: Reports: None Genitourinary History: Reports: None CHIEF METEOROLOGIST History: Reports: Musculoskeletal History: Reports: None Neurological History: Reports: None Psychiatric History: Reports: None Endocrine/Metabolic History: Reports: None Oncologic (Cancer) History: Reports: None Dermatologic History: Reports: None - Past Surgical History HEENT Surgical History: Reports: None Female Surgical History: Reports: None, Section, Other (See Below) Other Female Surgeries/Procedures: Bladder surgery Social & Family History - Family History Family Medical History: Noncontributory - Tobacco Use Smoking Status *Q: Former Smoker Used Tobacco, but Quit: Yes Month/Year Tobacco Last Used: 2012 - Caffeine Use Caffeine Use: Reports: Coffee, Soda - Recreational Drug Use Recreational Drug Use: No - Living Situation & Occupation Living situation: Reports: Occupation: Unemployed ED ROS GENERAL - Review of Systems Review Of Systems: See Below Constitutional: Reports: No Symptoms HEENT: Reports: No Symptoms Respiratory: Reports: No Symptoms Cardiovascular: Reports: No Symptoms Endocrine: Reports: No Symptoms GI/Abdominal: Reports: No Symptoms : Reports: No Symptoms Musculoskeletal: Reports: No Symptoms Skin: Reports: No Symptoms Neurological: Reports: Other (Mild temporal pressure headache discomfort) Psychiatric: Reports: No Symptoms Hematologic/Lymphatic: Reports: No Symptoms Immunologic: Reports: No Symptoms ED EXAM, GENERAL - Physical Exam Exam: See Below Exam Limited By: No Limitations General Appearance: Alert, WD/WN, Anxious (Mildly anxious.) Eye Exam: Bilateral Eye: Normal Fundi, Normal Inspection Throat/Mouth: Normal Inspection, Normal Lips, Normal Oropharynx Head: Atraumatic, Normocephalic Neck: Normal Inspection, Supple, Non-Tender, Full Range of Motion. No: Lymphadenopathy (L), Lymphadenopathy (R), Thyromegaly Respiratory/Chest: No Respiratory Distress, Lungs Clear, Normal Breath Sounds, No Accessory Muscle Use Cardiovascular: Normal Peripheral Pulses, Regular Rate, Rhythm, No Edema, No Gallop, No Murmur, No Rub Peripheral Pulses: 3+: Posterior Tibial (L), Posterior Tibial (R), Dorsalis Pedis (L), Dorsalis Pedis (R) GI/Abdominal: Normal Bowel Sounds, Soft, Non-Tender, No Organomegaly Back Exam: Normal Inspection, Full Range of Motion. No: CVA Tenderness (L), CVA Tenderness (R) Extremities: Normal Inspection, Normal Range of Motion, Non-Tender, No Pedal Edema, Normal Capillary Refill Neurological: Alert, Oriented, CN II-XII Intact, Normal Cognition, Normal Gait Psychiatric: Normal Affect, Normal Mood Skin Exam: Warm, Dry, Intact, Normal Color, No Rash EKG INTERPRETATION EKG Date: 12/06/18 Time: 13:49 Rhythm: NSR Rate (Beats/Min): 82 [place]: Normal P-Wave: Present QRS: Normal ST-T: Normal QT: Prolonged EKG Interpretation Comments: Essentially normal ECG Course - Vital Signs Last Recorded V/S: Last Vital Signs Temp 36.6 C 12/06/18 01:29 Pulse 92 12/06/18 01:29 Resp 18 12/06/18 01:29 BP 185/115 H 12/06/18 01:29 Pulse Ox 100 12/06/18 01:29 - Orders/Labs/Meds Orders: Active Orders 24 hr Category Date Time Status EKG Documentation Completion [RC] STAT Care 12/06/18 01:43 Active URINALYSIS W/MICROSCOPIC [UA W/MICROSCOPIC] [URIN] Stat Lab 12/06/18 01:43 Ordered amLODIPine [Norvasc] Med 12/06/18 02:22 Once 10 mg PO ONETIME ONE - Radiology Interpretation Free Text/Narrative:: 20-year-old female presents to the ED for evaluation of elevated blood pressure discovered at retreat out in [place]. Patient states she had hypertension develop during . Is on medication throughout half the and for 3 months afterwards due to preeclampsia. After this her blood pressure seemed to settle down to normal and she was taken off her medications which I believe was labetalol. this is from looking at old notes. Prezista the ED with an elevated blood pressure which initially was 180 01/21/18. Plan : monitoring her blood pressure for the next while decided to see if she really needs medication or not. Has hopes of achieving within the next 6 months which makes a difference what medications we opt to provide her with. I will have an ECG done and a urinalysis to make sure there is no significant proteinuria. - Re-Assessments/Exams Free Text/Narrative Re-Assessment/Exam: 12/06/18 01:54 heart pressure is already dropped to 168/110. 12/06/18 02:23) pressure achieved in the ED was 159/105 indicating that she still has mild to moderate hypertension and does deserve treatment. Give her Norvasc 10 mg now and start her on Aldomet or methyldopa 250 mg twice a day have her follow-up with Dr. Payton Laird in the clinic in about 3 weeks' time to check on blood pressure. Unfortunately the patient was not able to void well in the ED and she is on her menstrual cycle which is quite heavy at this time. I warned the urinalysis to check for any proteinuria. Desires routine lab work as well which can be done through the clinic. So she is hopeful to achieve within the next 6 months I chose methyldopa 250 mg twice a day if her starting dose and she could use up to 500 mg twice daily if necessary. Departure - Departure Time of Disposition: 02:25 Disposition: Home, Self-Care 01 Condition: Fair Clinical Impression: Essential hypertension Prescriptions: Methyldopa 250 mg PO BID #60 tab Referrals: PCP,None [Primary Care Provider] - Forms: ED Department Discharge Additional Instructions: Evaluation in the emergency department tonight does reveal that you do have mild to moderate hypertension. The lowest blood pressure achieved in the ED was 150 05/24/05. The highest was 185/118 when you entered the ED. At any rate the blood pressure remains too high. We are striving to achieve a blood pressure on the top number of 185 or less and on the bottom 85 or less. You're given Norvasc 10 mg in the ED which will bring your blood pressure down 10-15 points over the night. Just starting methyldopa 250 mg twice daily tomorrow when you can fill your prescription. Medication may take 2-3 weeks to work well. It is safe to use in which you're hoping to achieve in the near future. Follow-up as indicated with Dr. Payton Laird in the family medicine unit in 3 weeks' time for blood pressure review. Please call [phone] to arrange an appointment with her. That time you will need a urinalysis and some routine lab work. - My Orders Last 24 Hours: My Active Orders 12/06/18 01:43 EKG Documentation Completion [RC] STAT URINALYSIS W/MICROSCOPIC [UA W/MICROSCOPIC] [URIN] Stat 12/06/18 02:22 amLODIPine [Norvasc] 10 mg PO ONETIME ONE - Assessment/Plan Last 24 Hours: My Active Orders 12/06/18 01:43 EKG Documentation Completion [RC] STAT URINALYSIS W/MICROSCOPIC [UA W/MICROSCOPIC] [URIN] Stat 12/06/18 02:22 amLODIPine [Norvasc] 10 mg PO ONETIME ONE
[2018-12-06] MEDS ORDERED: amLODIPine 5 MG Tab PO ONE (02:22)
== END 2018-12-06 02:53 | disposition home or self-care (01) ==
LOC: JD.ED 01:25
DX: I10 Essential (primary) hypertension (principal); Z79.899 Other long term (current) drug therapy; Z87.891 Personal history of nicotine dependence
CPT/HCPCS: 93005; 99283; A9270; 93010; 99284

== ENCOUNTER 2021-09-08 21:06 | Emergency (ER) | payer BC ==
[2021-09-08] MEDS ORDERED: Clindamycin HCl 150 MG Cap PO ONE (21:49)
[2021-09-08] MEDS ORDERED: Acetaminophen/HYDROcodone 325-5 MG Tab PO ONE (21:49)
--- NOTE | 2021-09-08 21:56 | EDM.PDOC ---
ED HPI GENERAL MEDICAL PROBLEM - General Chief Complaint: ENT Problem Stated Complaint: DENTAL COMPLAINT Time Seen by Provider: 09/08/21 21:26 Source of Information: Reports: Patient, RN Notes Reviewed History Limitations: Reports: No Limitations - History of Present Illness INITIAL COMMENTS - FREE TEXT/NARRATIVE: Patient is a 31-year-old female presenting to the emergency department with complaints of right lower dental pain. Reports she has had pain off and on for the last couple weeks, however today it has become much more intense. Complains of chills but no fever. She took Tylenol with little relief. Of note, patient is 12 weeks , therefore she is unable to take NSAIDs. She has not seen a dentist for this complaint. Right Upper Tooth/Teeth Pain Score (Numeric/FACES): 10 - Related Data Allergies Allergy/AdvReac Type Severity Reaction Status Date / Time No Known Allergies Allergy Verified 09/18/19 09:11 Home Meds: Home Meds Cholecalciferol (Vitamin D3) [Vitamin D3] 5,000 unit PO ASDIRECTED 09/18/19 [History] Ferrous Sulfate [Iron] 325 mg PO BID 09/18/19 [History] Labetalol [Normodyne] 50 mg PO BID 09/18/19 [History] Multivitamin [Daily Multiple Vitamin] 1 tab PO DAILY 09/18/19 [History] Clindamycin HCl 300 mg PO TID 7 Days #20 capsule 09/08/21 [Rx] Hydrocodone/Acetaminophen [Hydrocodone-Acetamin 5-325 mg] 1 each PO Q4H PRN #12 tablet 09/08/21 [Rx] Past Medical History - Past Health History Medical/Surgical History: Denies Medical/Surgical History HEENT History: Reports: None, Impaired Vision Other HEENT History: Wears glasses Cardiovascular History: Reports: None, Hypertension Respiratory History: Reports: None Gastrointestinal History: Reports: None Genitourinary History: Reports: None [employer] History: Reports: Musculoskeletal History: Reports: None Neurological History: Reports: None Psychiatric History: Reports: None Endocrine/Metabolic History: Reports: None Oncologic (Cancer) History: Reports: None Dermatologic History: Reports: None - Past Surgical History HEENT Surgical History: Reports: None Female Surgical History: Reports: None, Section, Other (See Below) Other Female Surgeries/Procedures: Bladder surgery Social & Family History - Family History Family Medical History: No Pertinent Family History - Tobacco Use Tobacco Use Status *Q: Former Tobacco User Used Tobacco, but Quit: Yes Month/Year Tobacco Last Used: 2010 - Caffeine Use Caffeine Use: Reports: Coffee, Soda - Recreational Drug Use Recreational Drug Use: No - Living Situation & Occupation Living situation: Reports: Occupation: Unemployed ED ROS ENT - Review of Systems Review Of Systems: Comprehensive ROS is negative, except as noted in HPI. ED EXAM, ENT - Physical Exam Exam: See Below General Appearance: Alert, WD/WN, No Apparent Distress Mouth/Throat: Other (Mild erythema to the gums around tooth 23. Tenderness to palpation of the external jaw overlying this tooth. No obvious abscess.) Respiratory/Chest: No Respiratory Distress, Lungs Clear, Normal Breath Sounds, No Accessory Muscle Use, Chest Non-Tender Cardiovascular: Normal Peripheral Pulses, Regular Rate, Rhythm, No Edema, No Gallop, No JVD, No Murmur, No Rub Neurological: Alert, Oriented, No Motor/Sensory Deficits Psychiatric: Normal Affect, Normal Mood Skin: Warm, Dry, Intact, Normal Color, No Rash Course - Vital Signs Last Recorded V/S: Last Vital Signs Temp 97.9 F 09/08/21 21:29 Pulse 69 09/08/21 21:29 Resp 19 09/08/21 21:29 BP 184/114 H 09/08/21 21:29 Pulse Ox 100 09/08/21 21:29 - Orders/Labs/Meds Meds: Medications Discontinued Medications Generic Name Dose Route Start Last Admin Trade Name Germaine PRN Reason Stop Dose Admin Hydrocodone Bitart/Acetaminophen 1 tab 09/08/21 21:49 Acetaminophen/Hydrocodone 325-5 Mg Tab PO 09/08/21 21:50 ONETIME ONE Clindamycin HCl 300 mg 09/08/21 21:49 Clindamycin Hcl 150 Mg Cap PO 09/08/21 21:50 ONETIME ONE - Re-Assessments/Exams Free Text/Narrative Re-Assessment/Exam: Patient is a 31-year-old female presenting to the emergency department with complaints of pain to tooth 23 and the jaw adjacent to this. On exam, there is minimal erythema surrounding this tooth. Exam is otherwise unremarkable. Since she is 12 weeks , she is unable to take NSAIDs. She will be started on clindamycin. I will give her a dose of hydrocodone with Tylenol in the ER. Recommend routine Tylenol. For pain not relieved by that, short prescription for hydrocodone with Tylenol has been provided. Recommend contacting her dentist Saturday morning for evaluation. Discharge instructions as documented. Departure - Departure Time of Disposition: 21:53 Disposition: Home, Self-Care 01 Condition: Good Clinical Impression: Dental caries - Discharge Information *PRESCRIPTION DRUG MONITORING PROGRAM REVIEWED*: Yes *COPY OF PRESCRIPTION DRUG MONITORING REPORT IN PATIENT SILVIA: No Prescriptions: Clindamycin HCl 300 mg PO TID 7 Days #20 capsule Instructions: Dental Caries, Adult, [id number] Referrals: Peg Laird MD [Primary Care Provider] - Additional Instructions: Take clindamycin as prescribed. First dose was given in ER. Recommend routine Tylenol. For pain not relieved with this, you may take the hydrocodone with Tylenol as prescribed. Do not work or drive for 12 hours after taking this medication as it can be sedating. Contact your dentist on Saturday to set up follow-up. Return to ER as needed. Sepsis Event Note (ED) - Evaluation Sepsis Screening Result: No Definite Risk - Focused Exam Vital Signs: Vital Signs Temp Pulse Resp BP Pulse Ox 09/08/21 21:29 97.9 F 69 19 184/114 H 100
== END 2021-09-08 22:22 | disposition home or self-care (01) ==
LOC: JD.ED 21:06
DX: K02.9 Dental caries, unspecified (principal); I10 Essential (primary) hypertension; Z87.891 Personal history of nicotine dependence; Z79.899 Other long term (current) drug therapy
CPT/HCPCS: 99282; A9270-GY

== ENCOUNTER 2024-05-14 11:24 | Emergency (ER) | payer BC ==
[2024-05-14] MEDS ORDERED: Naloxone 0.4 MG/ML SDV IVPUSH PRN (12:19)
[2024-05-14] MEDS: Morphine 2 MG/ML SYRINGE IVPUSH ONE (12:26)
[2024-05-14] MEDS ORDERED: Sodium Chloride 0.9% 100 ML IV SCH (12:30)
[2024-05-14 12:36] LABS: BASOPHILS ABSOLUTE AUTO 0.1 K/mm3 (0.0-0.2); BASOPHILS PERCENT AUTO 0.9 % (0.0-1.0); EOSINOPHILS ABSOLUTE AUTO 0.3 K/mm3 (0.0-0.4); EOSINOPHILS PERCENT AUTO 3.9 % (0.0-6.0); HEMATOCRIT 41.2 % (37.0-47.0); HEMOGLOBIN 14.2 gm/dl (12.0-16.0); IMMATURE GRAN ABSOLUTE AUTO 0.03 K/mm3 (0.00-0.05); IMMATURE GRAN PERCENT AUTO 0.4 % (0.0-0.4); LYMPHOCYTES PERCENT AUTO 23.1 % (24.0-44.0); MEAN CORPUSCULAR HEMOGLOBIN 29.6 pg (28.0-32.0); MEAN CORPUSCULAR HGB CONC 34.5 g/dl (32.0-36.0); MEAN PLATELET VOLUME 8.1 fl (9.4-12.3); MONOCYTES ABSOLUTE AUTO 0.6 K/mm3 (0.0-0.8); MONOCYTES PERCENT AUTO 6.4 % (0.0-8.0); NEUTROPHILS ABSOLUTE AUTO 5.6 K/mm3 (1.8-7.7); NEUTROPHILS PERCENT AUTO 65.3 % (41.0-71.0); PLATELET COUNT,PLT 329 K/mm3 (150-400); RED BLOOD CELL COUNT 4.79 M/mm3 (4.10-5.30); WHITE BLOOD CELL COUNT,WBC 8.53 K/mm3 (3.9-11.3)
[2024-05-14] MEDS: Baclofen 10 MG Tab PO ONE (12:37)
[2024-05-14] MEDS: Sodium Chloride 0.9% 500 ML IV ONE (12:38)
[2024-05-14] MEDS: Sodium Chloride 0.9% 10 ML Syringe FLUSH PRN ×2 (12:39→12:48)
[2024-05-14] MEDS: Iopamidol 755 Mg/ML 100 ML Bottle IVPUSH ONE (12:48)
[2024-05-14 12:57] LABS: ANION GAP 11.1 (5-15); BUN/CREATININE RATIO 12.5 (14-18); CREATININE 0.8 mg/dL (0.55-1.02); EST CRCL DRUG DOSING (CG) 85.56 mL/min; MAGNESIUM 1.9 mg/dL (1.8-2.4); POTASSIUM,K 4.1 mEq/L (3.5-5.1)
[2024-05-14] MEDS: Ketorolac 15 MG/ML SDV IVPUSH ONE (14:04)
== END 2024-05-14 14:40 | disposition home or self-care (01) ==
LOC: JD.ED 11:24
DX: M62.830 Muscle spasm of back (principal); M54.6 Pain in thoracic spine; G89.29 Other chronic pain; I10 Essential (primary) hypertension; E66.9 Obesity, unspecified; Z79.82 Long term (current) use of aspirin; Z79.899 Other long term (current) drug therapy
CPT/HCPCS: 36415; 70498; 71046; 72125; 72128; 80048; 83735; 85025; 96374; 96375; 99284; A9270; J1885; J2270; J3490; J7030; Q9967